=== PATIENT | female | born 1960 | race Caucasian/White ===

== ENCOUNTER → 2023-08-03 13:55 | Outpatient (REF) | payer OTHER, SELFPAY | LOC: HWWDC 13:55 | PROVIDERS: ATTENDING PHYSICIAN Family Medicine | DX: Z12.31 Encounter for screening mammogram for malignant neoplasm of breast (principal) | CPT/HCPCS: 77063; 77067 ==

== ENCOUNTER 2024-05-06 11:01 | Emergency (ER) | payer MEDICARE, OTHER, SELFPAY ==
[2024-05-06 11:04] VITALS: BP 142/94
[2024-05-06 11:21] VITALS: BMI 22.7
--- NOTE | 2024-05-06 12:10 | ED.GENMED ---
History of Present Illness
General
Chief Complaint: Fall
Source: patient
Time Seen by Provider: 05/06/24 12:01
History of Present Illness
History of Present Illness:
64-year-old female with past medical history of hypertension and hyperlipidemia presenting to the emergency department for evaluation after she accidentally tripped and fell while walking her dog yesterday evening striking the right side of her head
onto the ground but her main concern was left upper extremity pain and decreased range of motion. Pain continued this morning which is what prompted patient to come to the ER for further evaluation. Denies any history of injury or surgery in the
past.
Past History
Past History
ED Past Medical History: HTN and Hypercholesterolemia
ED Past Surgical History: Other
Social History
Tobacco: Former smoker
Alcohol: None
Drug: None
Personal: Other
Living: with family
Review of Systems
Review of Systems
All Other Systems: ROS reviewed and negative except as documented in HPI and ROS
Phy Exam
Physical Exam
Physical Exam:
GENERAL: Alert , in no apparent distress
EYE: conjunctiva clear
Head: Small abrasion to the right lateral forehead, no active bleeding
NECK: Supple,
ENT: mmm.
LUNGS: no acute respiratory distress
NEUROLOGICAL: Alert and oriented
SKIN: Warm and dry, skin intact.
MUSCULOSKELETAL: left upper extremity: Moderate soft tissue swelling of the left shoulder. There is no range of motion at the left shoulder secondary to pain. Patient allows for flexion and extension of the left elbow but this does cause the
patient pain within the left shoulder. No deformity or complication of the wrist/digits. Easily palpable radial pulse. Sensation is grossly intact to light touch.
PSYCH: Normal and appropriate interaction.
Scores
Heart Failure Risk
Heart Failure Risk Score: Not Applicable
Heart Score for Chest Pain Patients
STEMI patient?: Not applicable
Withdrawal Assessment of Alcohol
Withdrawal Assessment Completed?: Not applicable
Course
Orders/Labs/Results
Orders:
Orders
05/06/24 11:07
Humerus, Left 2 Views [CR Humerus - Left Min 2 Views*] Urgent
Comment:
Reason For Exam: fall, pain
Shoulder, Left, Trauma CR [CR Shoulder, Trauma - Left] Urgent
Comment:
Reason For Exam: fall, pain
05/06/24 12:12
Sling Left-Treatment ONCE
Vital Signs
Initial and Last Documented VS:
Initial Vital Signs
Temp Pulse Resp BP Pulse Ox
98.7 F 89 18 142/94 99
05/06/24 11:04 05/06/24 11:04 05/06/24 11:04 05/06/24 11:04 05/06/24 11:04
Last Documented Vital Signs
Temp Pulse Resp BP Pulse Ox
98.7 F 89 18 142/94 99
05/06/24 11:04 05/06/24 11:04 05/06/24 11:04 05/06/24 11:04 05/06/24 11:04
MDM/Problems Addressed
Differential Diagnosis Includes:
Fracture, dislocation, contusion, sprain, do not have concern for intracranial bleeding
MDM/Problems Addressed:
64-year-old female presenting to the ER for evaluation after she had an accidental fall while walking her dog yesterday evening noting considerable pain to the left upper extremity. Patient states when she does not move her left arm her pain is
under control and she is declining anything for pain at this time. X-ray was ordered from triage and shows a proximal left humerus fracture. Patient will be placed in a sling. NSAIDs/Tylenol as needed for pain. Information for orthopedics
provided. Stable for discharge home.
*Radiology
Radiology exam reviewed: preliminary read by ED provider (Proximal left humerus fracture)
*Pulse Oximetry
Patient hypoxic: no
*Critical Care Note
Total Time (30-74mins, 75-104mins- exclusive of procedures): Not Applicable
ED Attending Note
-
Portions of this chart may have been created with voice recognition software.� Occasional wrong word or��sound alike� substitutions may have occurred due to the inherent limitations of voice recognition software.
Discharge Plan
Departure
Patient Disposition: Home (Routine Discharge)
Date of Disposition: 05/06/24
Time of Disposition: 12:10
Patient with high blood pressure during this ER visit?: Yes
Discharge Problem:
Closed fracture of left proximal humerus
Instructions: Shoulder or upper arm fracture
Referrals:
Jermain Arnett MD [Active] - (Orthopedist - Please call for appointment on Wednesday)
Miguel Anand MD [Family Provider] -
Interventions
Interventions:
*Risk Screen - Suicide Last Done: 05/06/24 11:04
*General Assessment Last Done: 05/06/24 11:04
*Neglect/Abuse Screening Last Done: 05/06/24 11:04
*ED- Fall Risk Assessment Last Done: 05/06/24 11:21
*ED COVID-19 Vaccine History Last Done: 05/06/24 11:21
*Nursing Disposition Last Done: 05/06/24 12:22
ED-Musculoskeletal Assessment Last Done: 05/06/24 11:23
ED- Neurological Assessment Last Done: 05/06/24 11:23
ED-Skin Assessment Last Done: 05/06/24 11:23
Discharge Date and Time
Discharge Date/Time: 05/06/24 12:22
Print Language: [place]
== END 2024-05-06 12:22 | disposition home or self-care (01) ==
LOC: EMR 11:01
PROVIDERS: EMERGENCY PHYSICIAN Emergency Medicine; FAMILY PHYSICIAN Family Medicine
DX: S42.202A Unspecified fracture of upper end of left humerus, initial encounter for closed fracture (principal); W01.0XXA Fall on same level from slipping, tripping and stumbling without subsequent striking against object, initial encounter; I10 Essential (primary) hypertension; E78.00 Pure hypercholesterolemia, unspecified; Z87.891 Personal history of nicotine dependence
CPT/HCPCS: 99283; 73030; 73060